=== PATIENT | male | born 1980 | race Caucasian/White ===

== ENCOUNTER 2021-03-21 11:31 | Emergency (ER) | payer OTHER, SELFPAY ==
--- NOTE | ~2021-03-21 | CT_ITS ---
EXAMINATION: CT chest high resolution wo co DATE: 03/21/2021 13:05 INDICATION: Fall from structure right 4th rib fracture FALL FROM ROOF TODAY TECHNIQUE: Computed tomography (CT) of the chest was performed without intravenous contrast. Addition al 3D reconstructions utilizing coronal maximum intensity projection (MIP) were performed. Automated exposure control and iterative reconstruction technique were employed. The dose-length product was 23 3.49 mGy-cm. COMPARISON: Right shoulder radiograph dated 03/21/2021 FINDINGS: Subtle angulation of the cortices of the anterior left and right fourth ribs without definitive corti reinaldo interruption or lucent fracture plane equivocal for nondisplaced fractures. There is no associate d edema to more specifically COVID concern for fracture. Lungs are clear with no pneumonia, pulmonary edema, hemorrhage or other pulmonary infiltrates. No pleural effusion or pneumothorax. Heart size is normal. Thoracic aorta is normal in caliber. No pathologically enlarged thoracic lymphadenopathy. 1 cm right hepatic lobe cyst. Visualized upper abdomen is otherwise unremarkable. IMPRESSION: 1. Relatively symmetric subtle angulation of the cortices of the anterior left and right fourth ribs which could represent age indeterminate nondisplaced fractures or normal developmental variation. No associated soft tissue edema to elevate suspicion for fracture and would correlate for point tenderne ss at these locations which are located approximately 2 cm inferolateral to the nipples. 2. No acute cardiopulmonary disease. Reviewed, dictated and finalized at location A. TY INTERN IMPRESSION: 1. Relatively symmetric subtle angulation of the cortices of the anterior left and right fourth ribs which could represent age indeterminate nondisplaced frac tures or normal developmental variation. No associated soft tissue edema to gilles vate suspicion for fracture and would correlate for point tenderness at these l ocations which are located approximately 2 cm inferolateral to the nipples. 2. No acute cardiopulmonary disease.
--- NOTE | ~2021-03-21 | XR_ITS ---
EXAMINATION: XR shoulder RT min 2V DATE: 03/21/2021 12:30 INDICATION: Right shoulder injury and pain. TECHNIQUE: 5 views of right shoulder were obtained. COMPARISON: None. FINDINGS: Bone alignment is normal. There is a fracture of right fourth rib. Joint spaces are normal. IMPRESSION: 1. Right fourth rib fracture. Reviewed, dictated and finalized at location B. TIONAL ED INSTRUCTOR
[2021-03-21 11:44] VITALS: BP 130/93; PULSE 75; RESP 20; TEMP 36.1; O2SAT 96
--- NOTE | 2021-03-21 11:59 | ED.FALL ---
HPI - Fall General Chief Complaint: Fall Stated Complaint: roof collasped om patient Source: patient and RN notes reviewed Mode of arrival: ambulatory Limitations: no limitations History of Present Illness HPI Narrative: patient was bili number structure when it suddenly collapsed. He was on a ladder and some of the structure with large 2 x 4 hours came down on top of his right shoulder the trapezius area. He has no other injuries. MD complaint: fall Onset (ago): hour(s) (1) Fall witnessed: yes, by bystander Place fall occurred: work Loss of consciousness: none Prolonged down time: no Symptoms prior to fall: none Location of injury - extremities: Right: shoulder Related Data Allergies Allergy/AdvReac Type Severity Reaction Status Date / Time SULFA Allergy Intermediate UNKNOWN Uncoded 03/21/21 11:53 Review of Systems Review of Systems: All systems reviewed & are unremarkable except as noted in HPI and below Respiratory: Respiratory: Denies dyspnea PMFSH Past Medical History Medical History (Updated 03/21/21 @ 13:41 by Zack Rangel MD) No active medical problems Surgical History Surgical History (Updated 03/21/21 @ 12:07 by Zack Rangel MD) History of removal of pigmented skin lesion Social History Social History (Updated 03/21/21 @ 12:07 by Zack Rangel MD) Smoking packs per day: 1 Smoking cigarettes per day: 20.0 Smoking status: Current every day smoker Tobacco type: cigarettes Alcohol intake: never Substance use: never Exam Const: General: healthy appearing, no acute distress and alert Nutritional Appearance: well nourished and thin Orientation/consciousness: patient oriented x3 HENMT: Head: normal to inspection Ears: external ears normal Face and sinus: normal facial exam Eyes: Conjunctivae: conjunctivae normal Pupils: Equal, round and reactive pupils present EOM: EOMs intact bilaterally Neck: Neck: normal visual inspection Resp: Effort & Inspection: normal respiratory effort Auscultation: clear to auscultation bilaterally Cardio: Rate: regular rate Rhythm: regular rhythm GI: Auscultation: normal bowel sounds Back/Spine/Pelvis: Cervical Spine: cervical ROM normal Thoracic/Lumbar Spine: thoraco-lumbar ROM normal Pelvis: no pain with anterior-posterior compression Skin: General skin exam: normal color Rashes: no rashes Neuro: General: patient oriented x3, moves all extremities, no meningeal signs and no focal motor deficits Speech: normal speech Gait exam (Neuro): Normal gait present Extrem: General: normal exam except as noted and no clubbing, cyanosis or edema Left upper extremity: shoulder/upper arm inspection abnormal, tenderness of the A-C joint, of the proximal humerus and of the scapula and abnormal ROM held in an abnormal fashion in ABduction, in flexion and in internal rotation, pain with active ROM in ADduction and in extension and pain with passive ROM in ABduction and in extension Psych: Appearance: grossly normal and well kempt Mental Status: mental status grossly normal Affect: normal affect Attitude: cooperative Thought content: Yes Normal thought content present Course Course Emergency Course: offer patient pain shot consistent possible Toradol for his rib fracture and he declined Vital Signs Vital signs: Vital Signs Temperature 36.1 C L 03/21/21 11:44 Pulse Rate 75 03/21/21 11:44 Respiratory Rate 20 03/21/21 11:44 Blood Pressure 130/93 H 03/21/21 11:44 Pulse Oximetry 96 03/21/21 11:44 Temperature 36.1 C L 03/21/21 11:44 Pulse Rate 88 03/21/21 13:51 Respiratory Rate 16 03/21/21 13:51 Blood Pressure 116/91 H 03/21/21 13:51 Pulse Oximetry 98 03/21/21 13:51 Discharge Plan Discharge Clinical Impression: Closed rib fracture Qualifiers: Encounter type: initial encounter Rib fracture type: single rib Laterality: right Qualified Code(s): S22.31XA - Fracture of one rib, right side, initial encounter for cl
[2021-03-21 13:51] VITALS: BP 116/91; PULSE 88; RESP 16; O2SAT 98
== END 2021-03-21 13:53 | disposition home or self-care (01) ==
PROVIDERS: Emergency Provider Emergency Medicine
DX: S22.31XA Fracture of one rib, right side, initial encounter for closed fracture (principal); W22.8XXA Striking against or struck by other objects, initial encounter
CPT/HCPCS: 71250; 73030; 99283; 99284